=== PATIENT | male | born 1950 | race Caucasian/White ===

== ENCOUNTER 2018-03-01 08:32 | Inpatient (IN) | payer MEDICARE, BC ==
[2018-02-18 16:09] LABS: BASOPHILS % (AUTO) 0.6 % (0-1); EOSINOPHILS # (AUTO) 0.3 X10'3 (0-0.9); EOSINOPHILS % (AUTO) 5.4 % (0-6); LYMPHOCYTES # (AUTO) 1.1 X10'3 (1.1-4.8); LYMPHOCYTES % (AUTO) 17.1 % (21-51); MEAN CORPUSCULAR HEMOGLOBIN 29.1 PG (27.0-31.0); MEAN CORPUSCULAR HGB CONC 32.6 % (33.0-36.5); MEAN CORPUSCULAR VOLUME 89.3 FL (78-98); MEAN PLATELET VOLUME 7.7 FL (7.4-10.4); MONOCYTES # (AUTO) 0.6 X10'3 (0-0.9); MONOCYTES % (AUTO) 8.9 % (2-12); NEUTROPHILS # (AUTO) 4.5 X10'3 (1.8-7.7); PRE OP HEMATOCRIT 44.9 % (42.0-52.0); PRE OP HEMOGLOBIN 14.6 g/dL (14.0-17.9); PRE OP PLATELET COUNT 250 X10'3 (140-440); RED BLOOD COUNT 5.03 X10'6 (4.70-6.10); RED CELL DISTRIBUTION WIDTH 13.5 % (11.5-14.5)
[2018-02-18 16:27] LABS: ALBUMIN 3.5 G/DL (3.4-5.0); ALBUMIN/GLOBULIN RATIO 1.1 (1.1-1.5); ALKALINE PHOSPHATASE 77 IU/L (46-116); BLOOD UREA NITROGEN 15 MG/DL (7-18); BUN/CREATININE RATIO 15.8 (5.4-32.0); CALCIUM 8.8 MG/DL (8.5-10.1); CHLORIDE 106 MMOL/L (99-107); CREATININE 0.95 MG/DL (0.60-1.10); PRE OP ALT 28 U/L (30-65); PRE OP ANION GAP 6 (8-16); PRE OP AST 23 U/L (10-37); PRE OP BILIRUB, TOTAL 0.5 MG/DL (0.0-1.0); PRE OP GLUCOSE 103 MG/DL (70-104); PRE OP POTASSIUM 3.9 MMOL/L (3.4-5.1); PRE OP SODIUM 140 MMOL/L (135-145); TOTAL CARBON DIOXIDE 28.1 MMOL/L (24-32); TOTAL PROTEIN 6.6 G/DL (6.4-8.2); eGFR 79 ML/MIN
[2018-03-01] VITALS (16 sets, daily range): BP systolic 89–122; BP diastolic 53–78
[~2018-03-01] VITALS: Ht 180.3 cm; Wt 105.9 kg
[~2018-03-01 08:32] MED LIST: Cefazolin 2GM/50ML dext iso,osmotic IVPB IV ONE; ESCI10TA54 PO; HYDR-565 PO; LISI10TA4 PO; famotidine 20mg tablet PO ONE; ringers solution, lacted 1,000 ML IV SCH; vancomycin inj 1,500 MG in normal saline 300ml IV soln IV ONE
[2018-03-01] MEDS ORDERED: vancomycin 1,000mg inj ONE (12:39)
[2018-03-01] MEDS ORDERED: ketorolac trometh. 30mg/ml inj. ONE (12:39)
[2018-03-01] MEDS ORDERED: ROPIVAcaine 0.5% (5mg/ml) 30ml vial ONE ×3 (12:39→14:42)
[2018-03-01] MEDS ORDERED: BUPIVAcaine/PF 7.5mg/ml (0.75%) 10ml vial ONE (12:43)
[2018-03-01] MEDS ORDERED: tetracaine 1% (10mg/ml) pres. free inj. ONE (12:43)
[2018-03-01] MEDS ORDERED: morphine /PF 1mg/ml 10ml inj. ONE (12:59)
[2018-03-01] MEDS ORDERED: MIDAZolam 1mg/ml 10ml vial ONE (12:59)
[2018-03-01] MEDS ORDERED: fentaNYL/PF 50MCG/1 ML 2ML syringe ONE (12:59)
[2018-03-01] MEDS ORDERED: tranexamic acid inj. 1,000 MG in normal saline 100ml IV soln 90 ML IV ONE ×4 (13:00)
[2018-03-01] MEDS ORDERED: ringers solution, lacted 1,000 ML IV SCH (13:22)
[2018-03-01] MEDS ORDERED: ondansetron/PF 4mg/2ml inj IV PRN ×2 (13:25→14:20)
[2018-03-01] MEDS ORDERED: hydrALAZINE 20mg/ml inj. IV PRN (13:25)
[2018-03-01] MEDS ORDERED: morphine 4 MG/ML inj SYRINge IV PRN ×2 (13:25)
[2018-03-01] MEDS ORDERED: fentaNYL/PF 50MCG/1 ML 2ML syringe IV PRN ×2 (13:25)
[2018-03-01] MEDS ORDERED: enalaprilat dihydrate 2.5mg/2ml vial IV PRN (13:25)
[2018-03-01] MEDS ORDERED: diphenhydrAMINE 50 mg/ml inj ONE (14:18)
[2018-03-01] MEDS ORDERED: acetaminophen 325mg tablet PO PRN (14:20)
[2018-03-01] MEDS ORDERED: HYDROmorphone 1 mg/ml syringe IV PRN ×2 (14:20)
[2018-03-01] MEDS ORDERED: magnesium hydroxide 30ml (MOM) UD suspension PO PRN (14:20)
[2018-03-01] MEDS ORDERED: bisacodyl 10mg suppository rectal RC PRN (14:20)
[2018-03-01] MEDS ORDERED: diphenhydrAMINE 25mg capsule PO PRN ×2 (14:20)
[2018-03-01] MEDS ORDERED: propofol inj 20 ML IV ONE ×2 (14:27)
[2018-03-01] MEDS ORDERED: tranexamic acid inj. 1,060 MG in normal saline 100ml IV soln 100 ML IV ONE (17:00)
[2018-03-01] MEDS: potassium cl 20mEq in 1/2 NS 1,000 ML IV SCH ×2 (18:34→22:19)
[2018-03-01] MEDS: ceFAZolin 1GM/D5W- ADD-VANTAGE 50 ML IV SCH (19:21)
[2018-03-01] MEDS ORDERED: vancomycin/NS 1 GM ADD-VANTAGE 250 ML IV SCH (20:00)
[2018-03-01] MEDS: ketorolac tromethamine 15mg/ml inj. IV SCH (20:03)
[2018-03-01] MEDS: acetaminophen 325mg tablet PO SCH (20:04)
[2018-03-01] MEDS ORDERED: gabapentin 300mg capsule PO SCH (21:00)
[2018-03-01] MEDS: sennosides 8.6mg tablet PO SCH (21:19)
[2018-03-02] MEDS: ceFAZolin 1GM/D5W- ADD-VANTAGE 50 ML IV SCH (00:08)
[2018-03-02] MEDS: acetaminophen 325mg tablet PO SCH ×4 (01:46→20:10)
[2018-03-02] MEDS: ketorolac tromethamine 15mg/ml inj. IV SCH ×3 (01:46→14:17)
[2018-03-02 02:00] VITALS: BP 92/58
[2018-03-02] MEDS: potassium cl 20mEq in 1/2 NS 1,000 ML IV SCH ×3 (04:52→22:19)
[2018-03-02] MEDS: oxyCODONE IR 5mg (immed. release) tablet PO PRN ×5 (05:19→22:29)
[2018-03-02 06:00] VITALS: BP 96/56
[2018-03-02 07:08] LABS: BASOPHILS % (AUTO) 0 % (0-1); EOSINOPHILS # (AUTO) 0.3 X10'3 (0-0.9); EOSINOPHILS % (AUTO) 2.2 % (0-6); HEMATOCRIT 35.9 % (42.0-52.0); HEMOGLOBIN 11.9 g/dl (14.0-17.9); LYMPHOCYTES # (AUTO) 0.7 X10'3 (1.1-4.8); LYMPHOCYTES % (AUTO) 5.8 % (21-51); MEAN CORPUSCULAR HEMOGLOBIN 29.6 PG (27.0-31.0); MEAN CORPUSCULAR HGB CONC 33.1 % (33.0-36.5); MEAN CORPUSCULAR VOLUME 89.4 FL (78-98); MEAN PLATELET VOLUME 7.2 FL (7.4-10.4); MONOCYTES # (AUTO) 0.8 X10'3 (0-0.9); MONOCYTES % (AUTO) 7.1 % (2-12); NEUTROPHILS # (AUTO) 9.9 X10'3 (1.8-7.7); NEUTROPHILS % (AUTO) 84.9 % (42-75); PLATELET COUNT 192 X10'3 (140-440); RED BLOOD COUNT 4.02 X10'6 (4.70-6.10); RED CELL DISTRIBUTION WIDTH 14.7 % (11.5-14.5); WHITE BLOOD COUNT 11.7 X10'3 (4.5-11.0)
[2018-03-02] MEDS: citalopram 20mg tablet PO SCH (07:33)
[2018-03-02] MEDS: aspirin 325mg tablet PO SCH (07:34)
[2018-03-02] MEDS: lisinopril 10 MG tablet PO SCH (07:34)
[2018-03-02 08:06] LABS: ANION GAP 7 (8-16); CHLORIDE 105 MMOL/L (99-107); POTASSIUM 4.4 MMOL/L (3.5-5.1); SODIUM 137 MMOL/L (135-145); TOTAL CARBON DIOXIDE 24.9 MMOL/L (24-32)
[2018-03-02] MEDS ORDERED: ASPI-1 PO (12:18)
[2018-03-02 14:00] VITALS: BP 105/56
[2018-03-02 18:00] VITALS: BP 110/48
[2018-03-02] MEDS: celeCOXIB 100mg capsule PO SCH (20:10)
[2018-03-02] MEDS: sennosides 8.6mg tablet PO SCH (20:11)
[2018-03-02 22:00] VITALS: BP 113/59
[2018-03-03] MEDS: acetaminophen 325mg tablet PO SCH ×2 (03:02→07:34)
[2018-03-03] MEDS: oxyCODONE IR 5mg (immed. release) tablet PO PRN ×3 (03:03→11:40)
[2018-03-03 05:10] LABS: BASOPHILS % (AUTO) 0.4 % (0-1); EOSINOPHILS # (AUTO) 0.4 X10'3 (0-0.9); EOSINOPHILS % (AUTO) 3.4 % (0-6); HEMATOCRIT 31.9 % (42.0-52.0); HEMOGLOBIN 10.7 g/dl (14.0-17.9); LYMPHOCYTES % (AUTO) 8.9 % (21-51); MEAN CORPUSCULAR HEMOGLOBIN 30.1 PG (27.0-31.0); MEAN CORPUSCULAR HGB CONC 33.5 % (33.0-36.5); MEAN CORPUSCULAR VOLUME 89.8 FL (78-98); MEAN PLATELET VOLUME 7.5 FL (7.4-10.4); MONOCYTES # (AUTO) 1.4 X10'3 (0-0.9); MONOCYTES % (AUTO) 12.3 % (2-12); NEUTROPHILS # (AUTO) 8.2 X10'3 (1.8-7.7); PLATELET COUNT 158 X10'3 (140-440); RED BLOOD COUNT 3.55 X10'6 (4.70-6.10); RED CELL DISTRIBUTION WIDTH 13.6 % (11.5-14.5)
[2018-03-03] MEDS: potassium cl 20mEq in 1/2 NS 1,000 ML IV SCH (06:19)
[2018-03-03 07:15] VITALS: BP 124/55
[2018-03-03] MEDS: celeCOXIB 100mg capsule PO SCH (07:34)
[2018-03-03] MEDS: lisinopril 10 MG tablet PO SCH (07:34)
[2018-03-03] MEDS: citalopram 20mg tablet PO SCH (07:34)
[2018-03-03] MEDS: aspirin 325mg tablet PO SCH (07:34)
[2018-03-03 10:00] VITALS: BP 109/77
[2018-03-03] MEDS ORDERED: acetaminophen 325mg tablet PO PRN (14:20)
== END 2018-03-03 11:40 | disposition home or self-care (01) | DRG 470 ==
LOC: PACU 08:32 → EDSTATUS 13:45 → ORTHO 4S 17:30
PROVIDERS: ADMIT Orthopaedic Surgery; ATTEND Orthopaedic Surgery
PROC: 3E0T3BZ Introduction of Anesthetic Agent into Peripheral Nerves and Plexi, Percutaneous Approach (ICD-10-PCS; 2018-03-01)
PROC: 8E0YXBZ Computer Assisted Procedure of Lower Extremity (ICD-10-PCS; 2018-03-01)
PROC: 8E0Y0CZ Robotic Assisted Procedure of Lower Extremity, Open Approach (ICD-10-PCS; 2018-03-01)
PROC: 0SRC0J9 Replacement of Right Knee Joint with Synthetic Substitute, Cemented, Open Approach (ICD-10-PCS; principal; 2018-03-01 13:25)
PROC: 5A09357 Assistance with Respiratory Ventilation, Less than 24 Consecutive Hours, Continuous Positive Airway Pressure (ICD-10-PCS; 2018-03-02)
PROC: 5A09357 Assistance with Respiratory Ventilation, Less than 24 Consecutive Hours, Continuous Positive Airway Pressure (ICD-10-PCS; 2018-03-03)
DX: M17.0 Bilateral primary osteoarthritis of knee (principal); D62 Acute posthemorrhagic anemia; G47.30 Sleep apnea, unspecified; I10 Essential (primary) hypertension; F41.9 Anxiety disorder, unspecified; Z96.642 Presence of left artificial hip joint; Z72.89 Other problems related to lifestyle; Z79.899 Other long term (current) drug therapy; Z79.82 Long term (current) use of aspirin; Z87.891 Personal history of nicotine dependence; Z82.49 Family history of ischemic heart disease and other diseases of the circulatory system
CPT/HCPCS: 36415; 80051; 80053; 85025; 87070; 97110; 97116; 97161; 97530; A6455; A7000; C1713; C1758; C1776; J0690; J1170; J1200; J1885; J2250; J2274; J2704; J2795; J3010; J3370; J3490; J7030; J7120; Q0163

== ENCOUNTER 2018-06-11 05:18 | Day surgery (SDC) | payer MEDICARE, BC ==
[2018-06-07 15:19] LABS: BASOPHILS % (AUTO) 0.3 % (0-1); EOSINOPHILS # (AUTO) 0.3 X10'3 (0-0.9); EOSINOPHILS % (AUTO) 3.5 % (0-6); LYMPHOCYTES # (AUTO) 1.2 X10'3 (1.1-4.8); LYMPHOCYTES % (AUTO) 14.6 % (21-51); MEAN CORPUSCULAR HEMOGLOBIN 26.9 PG (27.0-31.0); MEAN CORPUSCULAR HGB CONC 32.7 % (33.0-36.5); MEAN CORPUSCULAR VOLUME 82.3 FL (78-98); MEAN PLATELET VOLUME 6.8 FL (7.4-10.4); MONOCYTES # (AUTO) 0.7 X10'3 (0-0.9); NEUTROPHILS # (AUTO) 5.9 X10'3 (1.8-7.7); NEUTROPHILS % (AUTO) 72.6 % (42-75); PRE OP HEMATOCRIT 45.3 % (42.0-52.0); PRE OP HEMOGLOBIN 14.8 g/dL (14.0-17.9); PRE OP PLATELET COUNT 231 X10'3 (140-440); RED BLOOD COUNT 5.51 X10'6 (4.70-6.10); RED CELL DISTRIBUTION WIDTH 16.3 % (11.5-14.5)
[2018-06-07 15:33] LABS: ALBUMIN 3.8 G/DL (3.4-5.0); ALBUMIN/GLOBULIN RATIO 1.2 (1.1-1.5); ALKALINE PHOSPHATASE 79 IU/L (46-116); BLOOD UREA NITROGEN 18 MG/DL (7-18); BUN/CREATININE RATIO 25.4 (5.4-32.0); CHLORIDE 103 MMOL/L (99-107); CREATININE 0.71 MG/DL (0.60-1.10); PRE OP ALT 32 U/L (30-65); PRE OP ANION GAP 6 (8-16); PRE OP AST 24 U/L (10-37); PRE OP BILIRUB, TOTAL 0.5 MG/DL (0.0-1.0); PRE OP GLUCOSE 101 MG/DL (70-104); PRE OP POTASSIUM 4.3 MMOL/L (3.4-5.1); PRE OP SODIUM 136 MMOL/L (135-145); TOTAL PROTEIN 6.9 G/DL (6.4-8.2); eGFR > 90 ML/MIN
[2018-06-11] VITALS (7 sets, daily range): BP systolic 114–172; BP diastolic 67–95
[~2018-06-11] VITALS: Ht 180.3 cm; Wt 106.6 kg
[~2018-06-11 05:18] MED LIST changes: -Cefazolin 2GM/50ML dext iso,osmotic IVPB IV ONE; +HYDR-4383 PO; -HYDR-565 PO; -famotidine 20mg tablet PO ONE; -ringers solution, lacted 1,000 ML IV SCH; -vancomycin inj 1,500 MG in normal saline 300ml IV soln IV ONE
[2018-06-11] MEDS ORDERED: LIDOcaine 1% (10mg/ml) 2ml vial ONE (05:42)
[2018-06-11] MEDS: famotidine 20mg tablet PO ONE (05:58)
[2018-06-11] MEDS: ringers solution, lacted 1,000 ML IV SCH (05:58)
[2018-06-11] MEDS ORDERED: ROPIVAcaine 0.5% (5mg/ml) 30ml vial ONE (07:17)
[2018-06-11] MEDS: BUPIVAcaine/PF 2.5mg/ml (0.25%) 10ml vial ONE (07:52)
[2018-06-11] MEDS ORDERED: propofol inj 20 ML IV ONE (07:53)
[2018-06-11] MEDS: triamcinolone acetonide 40mg/ml inj ONE (07:53)
[2018-06-11] MEDS ORDERED: LIDOcaine 2% (20mg/ml) 5ml vial ONE (07:53)
[2018-06-11] MEDS ORDERED: midazolam 2 mg/2 ml injection ONE (07:53)
[2018-06-11] MEDS ORDERED: ringers solution, lacted 1,000 ML IV SCH (08:21)
[2018-06-11] MEDS ORDERED: fentaNYL/PF 50MCG/1 ML 2ML syringe IV PRN ×2 (08:25)
[2018-06-11] MEDS ORDERED: ondansetron/PF 4mg/2ml inj IV PRN (08:25)
[2018-06-11] MEDS ORDERED: morphine 4 MG/ML inj SYRINge IV PRN ×2 (08:25)
[2018-06-11] MEDS ORDERED: hydrALAZINE 20mg/ml inj. IV PRN (08:25)
[2018-06-11] MEDS ORDERED: HYDROcodone/acetaminophen 10/325mg tab PO PRN (08:25)
[2018-06-11] MEDS ORDERED: labetalol 20mg/4ml (5mg/ml) syringe IV PRN (08:25)
== END 2018-06-11 09:17 | disposition home or self-care (01) ==
LOC: PAS 05:18
PROVIDERS: ATTEND Orthopaedic Surgery
DX: M24.561 Contracture, right knee (principal); M17.0 Bilateral primary osteoarthritis of knee; I10 Essential (primary) hypertension; G47.33 Obstructive sleep apnea (adult) (pediatric); F41.8 Other specified anxiety disorders; G89.18 Other acute postprocedural pain; Z96.651 Presence of right artificial knee joint; Z79.891 Long term (current) use of opiate analgesic; Z79.1 Long term (current) use of non-steroidal anti-inflammatories (NSAID); Z96.642 Presence of left artificial hip joint; Z87.891 Personal history of nicotine dependence; Z72.89 Other problems related to lifestyle; Z90.79 Acquired absence of other genital organ(s); Z85.46 Personal history of malignant neoplasm of prostate; Z98.890 Other specified postprocedural states; Z79.899 Other long term (current) drug therapy
CPT/HCPCS: 27570; 36415; 64447; 80053; 85025; J2001; J2250; J2704; J3301; J3490; J2795; J7120